=== PATIENT | female | born 1995 | race Caucasian/White ===

== ENCOUNTER → 2016-10-31 | Outpatient (CLI) | payer BC ==
[~2016-10-31] MED LIST: DICL-201 PO
== END | disposition home or self-care (01) ==
LOC: C.PAPS 14:23
PROVIDERS: ATTEND Physician Assistant
DX: Z01.419 Encounter for gynecological examination (general) (routine) without abnormal findings (principal)

== ENCOUNTER → 2016-10-31 | Outpatient (CLI) | payer BC ==
[2016-11-04 06:59] LABS: CHLAMYDIA TRACH RNA*** NOT DETECTED (NOT DETECTED); GC (NEIS GONORRHOEAE)RNA** NOT DETECTED (NOT DETECTED)
== END | disposition home or self-care (01) ==
LOC: C.LABSPEC 13:57
PROVIDERS: ATTEND Physician Assistant
DX: Z01.419 Encounter for gynecological examination (general) (routine) without abnormal findings (principal)

== ENCOUNTER → 2016-12-19 | Outpatient (CLI) | payer BC | END | disposition home or self-care (01) | LOC: C.PATHSPEC 17:31 | PROVIDERS: ATTEND Obstetrics & Gynecology | DX: N90.4 Leukoplakia of vulva (principal) ==

== ENCOUNTER 2017-08-29 16:26 | Emergency (ER) | payer BC, OTHER ==
[~2017-08-29] VITALS: Ht 157.5 cm; Wt 47.4 kg
[2017-08-29 16:29] VITALS: TEMP 36.6; Ht 157.5 cm; Wt 47.4 kg
[2017-08-29] MEDS ORDERED: BCPILLS PO (17:25)
--- NOTE | 2017-08-29 17:47 | DIAGNOSTIC IMAGING REPORT ---
HEAD WITHOUT CONTRAST (CT) CT DOSE: 729.78 mGycm HISTORY: Mental status change YOUNG TECHNIQUE: Multiaxial CT images of the head were performed without the use of intravenous contrast. A dose lowering technique was utilized adhering to the principles of ALARA. Comparison: None. Findings: The paranasal sinuses and mastoid air cells are clear. The calvarium and skull base are intact. The ventricles and sulci are within normal limits. There is no mass, hematoma, midline shift, or acute infarct. Impression: No acute intracranial abnormality. The above report was generated using voice recognition software. It may contain grammatical, syntax or spelling errors. Electronically signed by: Tommy Jorge M.D. 08/29/2017 5:46 PM Dictated Date/Time: 08/29/2017 5:45 PM
[2017-08-29 18:04] VITALS: BP 116/76; PULSE 71; O2SAT 98
--- NOTE | 2017-08-29 18:23 | EMERGENCY ROOM VISIT NOTE ---
History Report prepared by Marii: Cristian Bañuelos Under the Supervision of: Dr. Lanre Rodriguez D.O. First contact with patient: 16:35 Chief Complaint: HEAD PAIN Stated Complaint: HEAD/NECK PAIN CAUSING LACK OF CONCENTRATION, HE History of Present Illness The patient is a 22 year old female who presents to the Emergency Room with complaints of constant posterior head and upper neck pain for the past three days. The patient states that she was laying in bed and got a sudden pain in her upper neck and the back of her head. She notes that the next day she was still having the pain, and she states that she was having difficulty concentrating and thinking. The patient notes that the pain is worse with movement. She additionally notes that she has a "divot on the top of her head" that she noticed a few months ago that occasionally throbs. Pt denies weakness and numbness in her arms and legs, change in vision, rash, ringing in her ears, fevers, chest pain, shortness of breath, nausea, vomiting, diarrhea, pain with urination, and melena. She states that she was recently diagnosed with lichen sclerosis. Source of History: patient Onset: three days ago Position: head, neck (upper) Timing: constant Modifying Factors (Worsening): other (rotating her head) Associated Symptoms: No weakness, No numbness, No rash Note: Associated symptoms: difficulty thinking and concentrating Review of Systems See HPI for pertinent positives & negatives. A total of 10 systems reviewed and were otherwise negative. Past Medical & Surgical Medical Problems: (1) Lichen sclerosus Social History Smoking Status: Never Smoker Marital Status: single Occupation Status: unemployed, student Current/Historical Medications Scheduled Control Pills ( Control Pills), 1 TAB PO DAILY Allergies Coded Allergies: No Known Allergies (Unverified , 08/29/17) Physical Exam Vital Signs Date Time Temp Pulse Resp B/P (MAP) Pulse Ox O2 Delivery O2 Flow Rate FiO2 08/29/17 16:29 36.6 79 18 113/82 98 Room Air Physical Exam GENERAL: Sitting up in bed, alert, well appearing, well nourished, no distress, non-toxic HEAD: Pain worsens with axillary rotation to the right and extension. EYE EXAM: normal conjunctiva. PERRL and EOM's intact. OROPHARYNX: no exudate, no erythema, lips, buccal mucosa, and tongue normal and mucous membranes are moist NECK: supple, no nuchal rigidity, no adenopathy, non-tender LUNGS: Clear to auscultation. Normal chest wall mechanics HEART: no murmurs, S1 normal and S2 normal ABDOMEN: abdomen soft, non-tender, normo-active bowel sounds, no masses, no rebound or guarding. BACK: Back is symmetrical on inspection and there is no deformity, no midline tenderness, no CVA tenderness. SKIN: no rashes and no bruising UPPER EXTREMITIES: upper extremities are grossly normal. LOWER EXTREMITIES: No pitting edema. NEURO EXAM: Normal sensorium, cranial nerves II-XII intact, normal speech, no weakness of arms, no weakness of legs. No drift. Finger to nose intact. Gross sensation intact. Medical Decision & Procedures ER Provider Diagnostic Interpretation: Radiology results as stated below per my review and the radiologist's interpretation: HEAD WITHOUT CONTRAST (CT) CT DOSE: 729.78 mGycm HISTORY: Mental status change YOUNG TECHNIQUE: Multiaxial CT images of the head were performed without the use of intravenous contrast. A dose lowering technique was utilized adhering to the principles of ALARA. Comparison: None. Findings: The paranasal sinuses and mastoid air cells are clear. The calvarium and skull base are intact. The ventricles and sulci are within normal limits. There is no mass, hematoma, midline shift, or acute infarct. Impression: No acute intracranial abnormality. The above report was generated using voice recognition software. It may contain grammatical, syntax or spelling errors. Electronically signed by: Tommy Jorge M.D. 08/29/2017 5:46 PM Dictated Date/Time: 08/29/2017 5:45 PM ED Course ED COURSE: Vital signs were reviewed and showed normal vitals The patients medical record was reviewed The above diagnostic studies were performed and reviewed. ED treatments and interventions as stated above. 1635: The patient was evaluated in room B7. A complete history and physical examination was performed. 1757: Upon reevaluation, the patient is doing well.I discussed my findings with the patient and she understands and agrees with the treatment plan. Based on the patients age, coexisting illnesses, exam and lab findings the decision to treat as an outpatient was made. The patient remained stable while under my care. The patient appeared well at the time of discharge. Medical Decision Differential Diagnosis includes but is not limited to headache, tension headache , cluster headache, migraine, subarachnoid hemorrhage, meningitis, mass, central venous thrombus, concussion, trauma and epidural/subdural hemorrhage. Patient is a 22-year-old female who presents the ER for left posterior headache/ neck pain. Pain is worsened with rotation of her head to the right along with extension. It does improve but is still noticeable with rotation to the left. Pain is at the base of the OA and at the insertion point of her posterior scalenes. It does worsen slightly with palpation. I do believe this musculoskeletal. CT head was negative. Patient was updated at bedside. Vitals were stable. Patient was discharged to follow-up with PCP as an outpatient. Discussed with Pt concerning signs and symptoms to watch out for. Pt was instructed to follow up with their PCP and discussed with the patient their option to return to the ED at anytime for persistent or worsening symptoms. The appropriate anticipatory guidance and out-patient management, including indications for return to the emergency department, were explained at length to the patient and understood. Medication Reconcilliation Current Medication List: was personally reviewed by me Blood Pressure Screening Patient's blood pressure: Normal blood pressure Impression Primary Impression: Head pain Scribe Attestation The scribe's documentation has been prepared under my direction and personally reviewed by me in its entirety. I confirm that the note above accurately reflects all work, treatment, procedures, and medical decision making performed by me. Departure Information Dispostion Home / Self-Care Referrals RV. Blackwell MD (PCP) Forms HOME CARE DOCUMENTATION FORM, IMPORTANT VISIT INFORMATION, WORK / SCHOOL INSTRUCTIONS Patient Instructions ED Neck Pain No Trauma, [facility] Additional Instructions Please follow up with your primary care doctor with in the next 24 hours. Any worsening of your symptoms, please return to the ED immediately. This includes any fevers greater than 100.4, worsening pain, chest pain, shortness breath, persistent nausea, vomiting, unable to eat or drink, or any other concerning signs or symptoms from your standpoint. Please take Motrin or Tylenol as needed for pain. Problem Qualifiers Primary Impression: Head pain Headache type: unspecified Headache chronicity pattern: acute headache Intractability: not intractable Qualified Codes: R51 - Headache
== END 2017-08-29 18:04 | disposition home or self-care (01) ==
LOC: C.EDB 16:28
DX: R51 Headache (principal); L90.0 Lichen sclerosus et atrophicus